=== PATIENT | female | born 1990 | race Caucasian/White ===

== ENCOUNTER 2024-01-27 00:50 | Emergency (ER) | payer BC ==
[~2024-01-27] VITALS: Ht 170.2 cm; Wt 63.5 kg
[2024-01-27 01:04] VITALS: BP_SYST 94; PULSE 73; RESP 19; TEMP 98.3; O2SAT 97
[2024-01-27 02:42] VITALS: BP_SYST 94; PULSE 73; RESP 19; TEMP 98; O2SAT 97
== END 2024-01-27 02:42 | disposition home or self-care (01) ==
LOC: SED 00:50
DX: K08.89 Other specified disorders of teeth and supporting structures (principal)
CPT/HCPCS: 99281